=== PATIENT | male | born 1960 | race African-American/Black ===

== ENCOUNTER 2017-12-28 22:19 | Emergency (ER) | payer MEDICAID, OTHER ==
[~2017-12-28] VITALS: Ht 170.2 cm; Wt 73.0 kg
[~2017-12-28 22:19] MED LIST: CHLO25CA10 PO; FOLI-43 PO; MULT-1146 PO; THIA100T13 PO
[2017-12-28] MEDS ORDERED: SODIUM CHLORIDE 0.9% 1,000 ML IV ONE (22:42)
[2017-12-28] MEDS ORDERED: ONDANSETRON HCL 4MG/2ML VIAL IV STA (22:42)
[2017-12-28] MEDS ORDERED: MECLIZINE 25MG TABLET PO ONE (22:45)
[2017-12-28] MEDS ORDERED: DEXAMETHASONE 10 MG/ML VIAL IV ONE (22:45)
[2017-12-28 23:13] LABS: BASOPHILS % 0.5 % (0.0-2.0); EOSINOPHILS % 2.3 % (0.0-5.0); HEMATOCRIT. 39.1 % (42.0-52.0); HEMOGLOBIN. 13.8 g/dL (14.0-18.0); LYMPHOCYTES % 25.2 % (20.0-50.0); MEAN CORPUSCULAR HEMOGLOBIN 31.9 pg (28.0-32.0); MEAN CORPUSCULAR VOLUME 90.7 fL (80.0-94.0); MEAN PLATELET VOLUME 8.3 fl (7.4-10.4); MONOCYTES % 8.5 % (2.0-8.0); NEUTROPHILS % 63.5 % (40.0-76.0); PLATELET 102 x1000/uL (130-400); RED BLOOD CELL COUNT 4.31 mill/uL (4.7-6.1); RED CELL DISTRIBUTION WIDTH 12.9 % (11.6-14.6)
[2017-12-28 23:16] LABS: CHLORIDE 101 mEq/L (98-107)
[2017-12-28 23:19] LABS: INR 1.1; PROTHROMBIN TIME 10.7 sec (9.1-11.1)
[2017-12-28 23:20] LABS: ETHANOL BLOOD < 10 mg/dL
[2017-12-29 02:01] LABS: *BENZODIAZEPINES SCREEN URINE NEGATIVE (NEGATIVE); *COCAINE SCREEN URINE NEGATIVE (NEGATIVE)
[2017-12-29 02:02] LABS: CANNABINOID URINE SCREEN NEGATIVE (NEGATIVE); METHADONE URINE SCREEN NEGATIVE (NEGATIVE); OPIATES URINE SCREEN NEGATIVE (NEGATIVE); PHENCYCLIDINE URINE SCREEN NEGATIVE (NEGATIVE)
[2017-12-29 02:06] LABS: *AMPHETAMINES SCREEN URINE NEGATIVE (NEGATIVE); *BARBITURATES SCREEN URINE NEGATIVE (NEGATIVE)
[2017-12-29 03:25] VITALS: BP 129/82
== END 2017-12-29 03:27 | disposition home or self-care (01) ==
LOC: ER 22:19
DX: R42 Dizziness and giddiness (principal); I10 Essential (primary) hypertension; F17.200 Nicotine dependence, unspecified, uncomplicated; F12.10 Cannabis abuse, uncomplicated; F14.10 Cocaine abuse, uncomplicated; F15.10 Other stimulant abuse, uncomplicated
CPT/HCPCS: 36415; 70450; 80048; 80305; 83735; 83880; 84484; 85025; 85610; 93005; 96361; 96374; 96375; 99285; G0482; J1100; J2405; J7030; Z7610; J8597